=== PATIENT | male | born 2000 | race American Indian/Alaskan Native ===

== ENCOUNTER 2024-06-14 18:54 | Emergency (ER) | payer OTHER ==
[~2024-06-14] VITALS: Ht 182.9 cm; Wt 87.4 kg
[2024-06-14 19:14] LABS: BASOPHILS 0.8 % (0-2); EOSINOPHILS 0.8 % (0-6); HEMATOCRIT 46.5 % (35.0-50.0); HEMOGLOBIN 15.8 g/dL (12.0-18.0); LYMPHOCYTES 31.4 % (24-44); MCH 29.9 (27-36); MCHC 33.9 g/dl (30-36); MCV 88.2 fl (81-99); MONOCYTES 7.8 % (0-12); NEUTROPHILS 59.2 % (39-80); PLATELET COUNT 312 K/uL (140-440); RBC 5.27 M/ul (4.3-5.7); RDW 12.8 (10.5-15.0)
[2024-06-14] MEDS ORDERED: LACTATED RINGER'S 1,000 ML IV ONE (19:15)
[2024-06-14] MEDS ORDERED: DIPHTH,PERTUSS(ACELL),TET VAC 0.5 ML SYRINGE IM ONE (19:15)
[2024-06-14 19:34] LABS: ALBUMIN 4.2 g/dL (3.4-5.0); ALBUMIN/GLOBULIN RATIO 1.11 (1.1-2.4); ANION GAP 16.1 (7-21); BILIRUBIN, TOTAL 0.4 ng/dL (0.2-1.0); BUN/CREATININE RATIO 4.27 (6.0-28.6); CALCIUM 8.3 mg/dL (8.5-10.1); CREATININE, SERUM 1.17 mg/dL (0.70-1.30); POTASSIUM 3.1 mmol/L (3.5-5.1)
[2024-06-14 19:43] LABS: BILIRUBIN, URINE NEGATIVE (negative); BLOOD/HGB, URINE NEGATIVE (Negative); KETONE, URINE NEGATIVE (Negative); LEUK ESTERASE, URINE NEGATIVE (negative); NITRITE, URINE NEGATIVE (negative); PH, URINE 6.5 (5-7)
[2024-06-14 19:54] LABS: ABO O; ANTIBODY SCREEN NEGATIVE; RH POSITIVE
[2024-06-14] MEDS ORDERED: LIDOCAINE/RACEPINEP/TETRACAINE 3 ML SYR TOP ONE ×2 (20:30→20:45)
[2024-06-14 20:32] LABS: AMPHETAMINES, URINE NEGATIVE (NEGATIVE); BARBITURATES, URINE NEGATIVE (NEGATIVE); BENZODIAZEPINE, URINE NEGATIVE (NEGATIVE); BUPRENORPHINE, URINE NEGATIVE (NEGATIVE); CANNABINOID, URINE POSITIVE (NEGATIVE); COCAINE, URINE NEGATIVE (NEGATIVE); ECSTASY, URINE NEGATIVE (NEGATIVE); FENTANYL, URINE NEGATIVE (NEGATIVE); METHADONE, URINE NEGATIVE (NEGATIVE); OPIATES, URINE NEGATIVE (NEGATIVE); OXYCODONE, URINE NEGATIVE (NEGATIVE); PHENCYCLIDINE, URINE NEGATIVE (NEGATIVE)
[2024-06-14 21:20] VITALS: BP 141/86
== END 2024-06-14 21:20 | disposition other institution, planned readmission (95) ==
LOC: ED 18:54
PROVIDERS: Internal Medicine
DX: S01.01XA Laceration without foreign body of scalp, initial encounter (principal); F10.129 Alcohol abuse with intoxication, unspecified; V48.5XXA Car driver injured in noncollision transport accident in traffic accident, initial encounter
CPT/HCPCS: 12011; 36415; 70450; 70486; 71045; 72125; 80053; 80307; 81003; 83690; 85025; 86850; 86900; 86901; 90471; 90715; 99285-25; G0480; J7121